=== PATIENT | male | born 1935 | race Caucasian/White ===

== ENCOUNTER 2016-10-16 13:09 | Emergency (ER) | payer MEDICARE ==
[~2016-10-16] VITALS: Ht 177.8 cm; Wt 92.0 kg
[2016-10-16 13:10] VITALS: BP 181/92; PULSE 82; RESP 20; TEMP 97.8; O2SAT 98
[2016-10-16] MEDS ORDERED: METF1000 PO (13:17)
[2016-10-16] MEDS ORDERED: TETANUS/DIPHTHERIA TOXOID ADULT 0.5 ML VIAL IM ONE (13:30)
[2016-10-16] MEDS ORDERED: BUPIVACAINE HCL PF 0.5% 10 ML VIAL INFIL ONE (13:30)
[2016-10-16] MEDS ORDERED: LIDOCAINE HCL 1% PF 30 ML VIAL INFIL ONE (13:30)
--- NOTE | 2016-10-16 13:45 | RADRPT ---
EXAM DATE/TIME: 10/16/2016 13:32 [place] COMPARISON: No previous studies available for comparison. INDICATIONS : Right 4th digit pain after getting smashing finger in a trailer MEDICAL HISTORY : None. SURGICAL HISTORY : None. ENCOUNTER: Initial ACUITY: 1 day PAIN SCORE: 8/10 LOCATION: Right distal 4th digit FINDINGS: There is evidence of an acute displaced avulsion fracture involving the dorsal aspect of the proximal portion of the right fourth distal phalanx. CONCLUSION: 1. Acute displaced avulsion fracture involving the proximal dorsal aspect of the right fourth distal phalanx. Cezar Duarte MD on October 16, 2016 at 13:38 Board Certified Radiologist. This report was verified electronically.
--- NOTE | 2016-10-16 13:51 | PD ---
HPI Chief Complaint: Laceration/Skin Injury Time Seen by Provider: 13:20 Travel History International Travel<30 days: No Contact w/Intl Traveler<30days: No Traveled to known affect area: No History of Present Illness HPI 81-year-old male presents to the emergency room for evaluation of injury to his right fourth finger that occurred just prior to arrival. Patient slammed his finger in a trailer with about 250 pounds of pressure/weight. Patient states he believes his nail is going to fall off. He has pain at the tip of the fourth finger especially over the distal joint. He also has a small skin tear to the right dorsal hand. Patient denies any other injuries to the hand. Denies paresthesias. Unknown last tetanus. PFSH Past Medical History Diabetes: Yes Patient Takes Glucophage: Yes Diminished Hearing: No Tetanus Vaccination: > 5 Years Influenza Vaccination: No ?: Not Past Surgical History Oral Surgery: Yes (WISDOM TEETH) Social History Alcohol Use: Yes (COUPLE DRINKS AFTER WORK DAILY) Tobacco Use: No Substance Use: No Allergies-Medications (Allergen,Severity, Reaction): Coded Allergies: No Known Allergies (Unverified , 10/16/16) Reported Meds & Prescriptions Reported Meds & Active Scripts Active Keflex (Cephalexin) 500 Mg Capsule 500 Mg PO Q6H 7 Days Reported Metformin (Metformin HCl) 1,000 Mg Tab 1,000 Mg PO BIDPC With meals Review of Systems Except as stated in HPI: all other systems reviewed are Neg Physical Exam Narrative GENERAL: Well-nourished, well-developed male in no acute distress. Afebrile. Ambulatory. SKIN: Focused skin assessment warm/dry. There is a superficial skin tear over the right dorsal hand below the fourth finger. HEAD: Normocephalic. EYES: No scleral icterus. No injection or drainage. NECK: Supple, trachea midline. No JVD or lymphadenopathy. CARDIOVASCULAR: Regular rate and rhythm without murmurs, gallops, or rubs. RESPIRATORY: Breath sounds equal bilaterally. No accessory muscle use. EXTREMITY: Right fourth finger tender to palpation over the DIP joint, no other hand tenderness. Less than 2 second capillary refill distally. Limited range of motion of the fourth DIP joint. Data Data Last Documented VS Vital Signs Date Time Temp Pulse Resp B/P Pulse Ox O2 Delivery O2 Flow Rate FiO2 10/16/16 13:10 97.8 82 20 181/92 98 Orders Bupivacaine Pf 0.5% Inj (Marcaine Pf 0.5 (10/16/16 13:30) Tetanus/Diphtheria Tox Adult (Tetanus/Di (10/16/16 13:30) Lidocaine Pf 1% Inj (Xylocaine-Mpf 1% In (10/16/16 13:30) Finger ([id number]) (10/16/16 ) MDM Medical Decision Making Medical Screen Exam Complete: Yes Emergency Medical Condition: Yes Medical Record Reviewed: Yes Differential Diagnosis Open fracture, contusion, abrasion, sprain, strain Narrative Course 81-year-old male presents to the emergency room for evaluation of laceration/ injury to his right fourth finger that occurred just prior to arrival. Patient got his finger slammed in a trailer hitch. Physical exam reveals a laceration around the right fourth nail bed. Nail is intact and in place. There is slight palmar angulation of the distal phalanx on exam. Extreme tenderness to palpation of the DIP joint. Less than 2 second capillary refill distally. Tetanus was updated. X-ray shows avulsion fracture of the proximal area of the distal phalanx. A digital block was performed in the finger was manipulated to correct the angulation. There wasn't significant change. The wound and fingernail were glued in place. He will be discharged on Keflex for open fracture. Patient was discharged with rani tape and splint and told to follow- up with the primary care physician and hand surgeon. Told to worsening symptoms. He understands and agrees to plan. Procedures Procedure Narrative REPAIR: The area of the laceration was prepped with Betadine. A digital block was performed using 0.5% bupivacaine and 1% lidocaine. The wound was copiously irrigated and explored without evidence of foreign body, tendon injury or neurovascular injury. The proximal finger was held in traction and the distal phalanx was pulled in the volar direction. The wound was closed using Dermabond. This was a single layer repair. A splint was applied. The patient was advised to keep the dressing clean and dry. Patient tolerated the procedure well. Diagnosis Primary Impression: Fracture of phalanx of right ring finger Qualified Code: S62.634B - Open displaced fracture of distal phalanx of right ring finger, initial encounter Referrals: Hand Surgeon Primary Care Physician Patient Instructions: Finger Fracture (ED), General Instructions Additional Instructions: Rest and drink plenty of fluids. Keflex as directed, until gone. Keep wound clean and dry. Apply triple antibiotic ointment daily. Take Tylenol as directed, as needed for pain. Apply ice to the affected area for 20 minutes at a time, as needed for pain and swelling. Follow-up with a primary care physician and/or hand surgeon. Return to the emergency room for worsening symptoms. Med/Other Pt SpecificInfo: Prescription(s) given Scripts Cephalexin (Keflex)500 Mg [id number] Mg PO Q6H 7 Days Ref 0 Prov:Tico Serrano MD 10/16/16 Disposition: 01 DISCHARGE HOME Condition: Stable Judit Funez Oct 16, 2016 13:51
[2016-10-16] MEDS ORDERED: CEPH-460 PO ×2 (14:20→14:38)
== END 2016-10-16 15:15 | disposition home or self-care (01) ==
LOC: PHEFT 13:09
DX: S62.634B Displaced fracture of distal phalanx of right ring finger, initial encounter for open fracture (principal); W23.0XXA Caught, crushed, jammed, or pinched between moving objects, initial encounter; Z23 Encounter for immunization
CPT/HCPCS: 26755; 73140; 90471; 90714